=== PATIENT | male | born 2000 | race Caucasian/White ===

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

== ENCOUNTER 2020-08-18 22:13 | Emergency (ER) | payer OTHER ==
[~2020-08-18] VITALS: Ht 185.4 cm; Wt 65.8 kg
[~2020-08-18 22:13] MED LIST changes: +NORCO 5-325 TA1 EACH PO
[2020-08-19] MEDS ORDERED: NORCO7.5 PO (01:07)
[2020-08-19 01:13] VITALS: BP 116/84
== END 2020-08-19 01:26 | disposition home or self-care (01) ==
LOC: ER 22:13
DX: S16.1XXA Strain of muscle, fascia and tendon at neck level, initial encounter (principal); S40.012A Contusion of left shoulder, initial encounter; S09.90XA Unspecified injury of head, initial encounter; F17.210 Nicotine dependence, cigarettes, uncomplicated; V23.4XXA Motorcycle driver injured in collision with car, pick-up truck or van in traffic accident, initial encounter; Y93.I9 Activity, other involving external motion; Y92.488 Other paved roadways as the place of occurrence of the external cause; Y99.8 Other external cause status